=== PATIENT | male | born 1985 | race Caucasian/White ===

== ENCOUNTER 2019-04-25 19:59 | Emergency (ER) | payer SELFPAY ==
[2019-04-25] VITALS (13 sets, daily range): BP systolic 94–147; BP diastolic 53–106; PULSE 91–122; RESP 22–28; TEMP 36.6; O2SAT 97–99; BMI 23.0
--- NOTE | 2019-04-25 | XR_ITS ---
WS: [id number] Portable AP supine chest, Clinical Data: POST TUBE Comparison: None. Findings: The endotracheal tube is above the denzel. The nasogastric tube appears to end in the stoma ch. No nodules, masses or effusions are seen. The heart is normal. The pulmonary vascularity is not i ncreased. No pneumonia or pneumothorax is seen. XR/XR chest 1V [id number] Impression: 1. Satisfactory insertion of endotracheal tube and nasogastric tube. 2. Negative for acute cardiopulmonary disease.
--- NOTE | 2019-04-25 20:03 | XR_ITS ---
WS: [id number] Portable AP upright chest, 04/25/2019, 2213 hours Clinical Data: ams Comparison: Portable chest, 11/28/2017. Findings: No nodules, masses or effusions are seen. The heart is normal. The pulmonary vascularity is not increased. No pneumonia or pneumothorax is seen. XR/XR chest 1V portable [id number] Impression: Negative chest.
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
--- NOTE | 2019-04-25 20:05 | ECG_ITS ---
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 [email or web address]
[2019-04-25] MEDS: LORazepam 2 mg/mL INJ 1 mL IVP ×2 (20:21→23:02)
[2019-04-25] MEDS: sodium chloride 0.9% 1,000 ML 999 ML IV ×2 (20:21→23:36)
[2019-04-25 20:29] LABS: Basophils % 0.3 %; Eosinophils % 0.3 %; Hematocrit 40.3 % (42.0-52.0); Hemoglobin 13.4 g/dL (11.7-16.6); Lymphocytes # 2.2 10^3/uL (0.8-4.8); Lymphocytes % 37.9 %; Mean Corpuscular HGB Conc 33.3 g/dL (30.0-36.0); Mean Corpuscular Hemoglobin 29.3 pg (28.0-34.0); Monocytes # 0.7 10^3/uL (0.2-0.9); Monocytes % 11.3 %; Neutrophils # 2.9 10^3/uL (1.8-7.7); Nucleated Red Blood Cells % 0 %; Platelet Count 240 10^3/cmm (130-400); Red Blood Count 4.58 10^6/uL (4.1-5.3); Red Cell Distribution Width 13.2 % (12.1-15.1); White Blood Count 5.7 10^3/uL (4.0-10.0)
[2019-04-25] MEDS: haloperidol inj 5 mg/mL INJ 1 mL IVP (20:30)
[2019-04-25 20:51] LABS: Alanine Aminotransferase 26 U/L (0-41); Albumin Level 4.7 g/dL (3.5-5.2); Alkaline Phosphatase 71 IU/L (40-130); Anion Gap 16.5 (5-19); Aspartate Amino Transferase 36 U/L (0-40); Blood Urea Nitrogen 23 mg/dL (6-20); Calcium 10.4 mg/dL (8.5-10.5); Carbon Dioxide 24 mmol/L (22-29); Chloride 107 mmol/L (98-107); Globulin 3.1 g/dL (1.3-4.6); Glomerular Filtration Rate 53.6 mL/min (90-130); Glucose 93 mg/dL (65-115); Potassium 3.5 mmol/L (3.5-5.1); Sodium 144 mmol/L (136-145); Total Bilirubin 0.4 mg/dL (0.15-1.2); Total Protein 7.8 g/dL (6.6-8.7)
[2019-04-25 20:52] LABS: Ammonia 47 umol/L (16-60)
[2019-04-25 21:07] LABS: Acetaminophen < 5.0 ug/mL (10-30); Alcohol Level < 10 mg/dL (0-10); Salicylate < 0.3 mg/dL (3-10)
[2019-04-25] MEDS: succinylcholine 20 mg/mL SDV 10mL 100 MG IV (21:20)
--- NOTE | 2019-04-25 21:43 | CTR_ITS ---
PROCEDURE INFORMATION: Exam: CT Head Without Contrast Exam date and time: 04/25/2019 10:04 PM Age: 33 years old Clinical indication: Altered mental status/memory loss; Confusion or disorientation; Patient HX: PT came in ams/combative, no other HX available TECHNIQUE: Imaging protocol: Computed tomography of the head without contrast. Total DLP: 782.1 mGy-cm Radiation optimization: All CT scans at this facility use at least one of these dose optimization techniques: automated exposure control; mA and/or kV adjustment per patient size (includes targeted exams where dose is matched to clinical indication); or iterative reconstruction. COMPARISON: CT head wo con* [id number] 11/28/2017 10:40 AM FINDINGS: Brain: Normal. No hemorrhage. Unremarkable white matter. No mass effect. Ventricles: Normal. No ventriculomegaly. Bones/joints: Unremarkable. No acute fracture. Sinuses: Mild mucosal thickening in the ethmoid and left maxillary sinuses. Mastoid air cells: Visualized mastoid air cells are well aerated. Soft tissues: Unremarkable. CT/CT head wo con* [id number] IMPRESSION: No acute intracranial abnormality. Radiation Dose CTDIVOL = (mGy): DLP = 782.1 (mGy-cm)
[2019-04-25] MEDS: vecuronium 10 mg SDV IVP (21:47)
[2019-04-25] MEDS: propofol 1,000 MG/100 ML INJ 2.2 MG IV (22:15)
[2019-04-26] VITALS (39 sets, daily range): BP systolic 102–138; BP diastolic 69–100; PULSE 50–108; RESP 14–31; O2SAT 74–100
[2019-04-26 01:54] LABS: Barbiturates Screen Urine Negative (Negative); Benzodiazepines Screen Urine Positive (Negative); Cocaine Screen Urine Negative (Negative); Opiate Screen Urine Negative (Negative); PCP Screen Urine Negative (Negative); THC Screen Urine Negative (Negative)
[2019-04-26] MEDS: propofol 10 mg/mL SDV 20 mL 40 MG IVP (01:59)
[2019-04-26 02:06] LABS: Amphetamines Screen Urine Positive (Negative)
--- NOTE | 2019-04-26 02:11 | PC.NURSE ---
pt began to wake up, and fight the tube. Dr ordered propofol increased 15, and moved pt to trauma room 10
[2019-04-26 05:13] LABS: ABG PCO2 36.2 mmHg (35-45); ABG PH Result 7.36 (7.35-7.45); Base Excess ABG -4.6 mmol/L (-2.0-2.0); Blood Gas Allen Test Pos; Blood Gas Sample Site Radial, right; Blood Gas Sample Type Arterial; Blood Gas Tidal Volume 0.55; HCO3 ABG 20.3 mmol/L (22-26); Oxygen Device VENT
[2019-04-26] MEDS: sodium chloride 0.9% 1,000 ML 150 ML IV (05:23)
[2019-04-26] MEDS: vecuronium 10 mg SDV IV ×3 (06:20→09:15)
[2019-04-26] MEDS: midazolam 1 mg/mL INJ 2 mL 4 MG IVP (07:37)
--- NOTE | 2019-04-26 08:50 | PC.NURSE ---
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 Dispatch called and stated that the [facility] compounding and finishing supervisor okayed the call.
== END 2019-04-26 09:36 | disposition other institution (70) ==
PROVIDERS: Emergency Provider Emergency Medicine
DX: R41.82 Altered mental status, unspecified (principal); F15.10 Other stimulant abuse, uncomplicated
CPT/HCPCS: 31500; 36415; 51702; 70450; 71045; 80053; 80307; 82140; 82803; 85025; 93005; 94002; 94003; 94799; 96360; 96365; 96366; 96372; 96375; 99284; 99291; J0330; J1630; J2060; J2250; J2704; J3490; J7030

== ENCOUNTER → 2019-11-25 11:33 | Outpatient (BNVA) | payer OTHER, SELFPAY | PROVIDERS: Visit Provider Nurse Practitioner Family | DX: J06.9 Acute upper respiratory infection, unspecified (principal); Z20.828 Contact with and (suspected) exposure to other viral communicable diseases | CPT/HCPCS: 87635 ==

== ENCOUNTER 2020-09-21 05:39 | Emergency (ER) | payer SELFPAY ==
[2020-09-21 05:48] VITALS: BP 111/77; PULSE 86; RESP 14; TEMP 36.7; O2SAT 94; BMI 27.1
--- NOTE | 2020-09-21 06:04 | W.ED.NAVMDI ---
HPI - Nausea/Vomiting/Diarrhea General: Chief complaint: Nausea/Vomiting/Diarrhea Stated complaint: Overheated at work, Vomited Stomach Ache Time Seen by Provider: 09/21/20 06:03 History of Present Illness: HPI Narrative: 35-year-old male presents emergency room complaining of nausea. 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 He got progressively worse he several times tried to go to an air conditioned space to get some relief as he went in and out of that space he began to have more trouble his trying to drink Gatorade and water but began vomiting was unable to keep anything down he did end up finishing his shift went home was able to shower and then laid down but is still been nauseous through the night he drank evidently of sponges a gallon of milk he is not having as much nausea this morning but still feels lightheaded dizzy and weak. He denies any hematochezia melena hematemesis or coffee-ground emesis patient is not diabetic to the best of his knowledge. He is on Wellbutrin and sertraline. MD elicited complaint: nausea and vomiting Onset (ago): hour(s) Description of vomiting: watery Associated nausea: Yes Associated abdominal pain: Yes Location of pain: Diffuse Radiation: diffuse Severity: moderate Quality: cramping Exacerbating factors: eating Relieving factors: rest Context: history of abdominal surgery Associated symtoms: Reports dizziness, anorexia, malaise, nausea and weakness; Denies altered mental status, anxiety, bloating, change in vision, chest pain, cough, diaphoresis, decreased urine output, dysuria, epistaxis, fatigue, fecal incontinence, fevers/chills, headache(s), myalgias, numbness, palpitations, rash, short of breath, syncope, tenesmus or tinnitus Treatment prior to arrival: fluids Review of Systems Const: Reports: malaise; Denies: fatigue or diaphoresis Eyes: Denies: change in vision ENMT: Denies: tinnitus or epistaxis Card: Denies: chest pain, palpitations or syncope Resp: Denies: dyspnea, productive cough or non-productive cough GI: Reports: nausea; Denies: bloating or fecal incontinence : Denies: dysuria Skin/Breast: Denies: rash or pruritus Neuro: Reports: dizziness; Denies: headache(s) Psych: Denies: anxiety PFSH ED PFSH: Medical History (Updated 09/21/20 @ 07:16 by Joey Navarro DO) Recent surgical procedure on lower extremity Surgical History History of appendectomy Social History Smoking and tobacco status: unknown if ever smoked Quit status (tobacco): not considering quitting Second hand smoke exposure: No Smoking risk assessment/counseling performed?: Yes Tobacco counseling given: counseling >3 minutes Physical Exam Const: COMMON NORMALS: no acute distress EXAM LIMITATIONS: no altered mental status GENERAL APPEARANCE: cooperative and comfortable ORIENTATION/CONSCIOUSNESS: Yes awake, Yes oriented to person, Yes oriented to place and Yes oriented to time HENMT: COMMON NORMALS: normocephalic, atraumatic, hearing grossly normal bilaterally and external ears normal HEAD & SCALP: normocephalic and atraumatic EXTERNAL EAR: Yes external ears normal Neck/C-Spine: COMMON NORMALS: no JVD Lymph: LYMPHATIC: no lymphadenopathy noted and no lymphedema noted Resp: COMMON NORMALS: normal respiratory effort, No retractions, No use of accessory muscles and clear to auscultation bilaterally AUSCULTATION: clear to auscultation bilaterally Cardio: COMMON NORMALS: no JVD, regular rate, regular rhythm and No murmurs present (Cardio) RATE: regular rate RHYTHM: regular rhythm GI: COMMON NORMALS: Soft to palpation and No hepatosplenomegaly present AUSCULTATION: Yes normoactive bowel sounds PALPATION: Yes Soft to palpation, No Tenderness to palpation present (GI), No Guarding due to palpation present (GI) and Yes No hepatosplenomegaly present Extremity: COMMON NORMALS: normal to inspection, capillary refill normal, no clubbing, cyanosis or edema, no calf tenderness and no pedal edema Neuro: SENSORIUM/ORIENTATION: Yes oriented to person, Yes oriented to place and Yes oriented to time Skin: COMMON NORMALS: no rashes or lesions noted GENERAL SKIN EXAM: no rashes or lesions noted Course Vital Signs: Vital signs: Vital Signs Temperature 98.1 F 09/21/20 05:48 Pulse Rate 76 07/09/21 08:38 Respiratory Rate 15 09/21/20 08:38 Blood Pressure 109/60 09/21/20 08:38 Pulse Oximetry 99 09/21/20 08:38 MDM - Nausea/Vomiting/Diarrhea MDM Narrative: Medical decision making narrative: IV fluids we will have the patient take the next day off of work. Give him antiemetics push oral fluids at home return if has problems. Should follow-up for repeat labs with his primary care doctor next week. Avoid excessive exposure to heat. Lab Data: Labs: Lab Results 09/21/20 09/21/20 Range/Units 06:20 06:20 WBC 7.4 (4.0-10.0) 10^3/ uL RBC 5.11 (4.1-5.3) 10^6/u L Hgb 15.1 (11.7-16.6) g/dL Hct 44.4 (42.0-52.0) % MCV 86.9 (80-94) fL MCH 29.5 (28.0-34.0) pg MCHC 34.0 (30.0-36.0) g/dL RDW 12.5 (12.1-15.1) % Plt Count 295 (130-400) 10^3/c mm MPV 9.8 (7.4-10.4) fL Neut % (Auto) 60.8 % Lymph % (Auto) 27.7 % Schuyler % (Auto) 9.7 % Eos % (Auto) 1.1 % Baso % (Auto) 0.4 % Neut # (Auto) 4.52 (1.8-7.7) 10^3/u L Lymph # (Auto) 2.1 (0.8-4.8) 10^3/u L Schuyler # (Auto) 0.7 (0.2-0.9) 10^3/u L Eos # (Auto) 0.1 (0.0-0.8) 10^3/u L Baso # (Auto) 0.0 (0.0-0.1) 10^3/u L Nucleated RBC % (a uto) 0 % Nucleated RBCs # 0.0 /100WBC Sodium 137 (136-145) mmol/L Potassium 3.8 (3.5-5.1) mmol/L Chloride 96 L (98-107) mmol/L Carbon Dioxide 28 (22-29) mmol/L Anion Gap 16.8 (5-19) BUN 46 H (6-20) mg/dL Creatinine 1.5 H (0.7-1.2) mg/dL GFR Calculation 53.0 L (90-130) mL/min Glucose 112 (65-115) mg/dL Calculated Osmolal ity 297 H (285-295) mOsm/k g Calcium 9.6 (8.5-10.5) mg/dL Discharge Plan Discharge Patient Disposition: Home Clinical Impression: Heat exhaustion, Dehydration Condition: Stable Prescriptions: New Zofran 4 mg tablet 4 mg PO Q6H PRN (Reason: nausea and vomiting) Qty: 20 RF: 0 No Action ibuprofen 100 mg tablet 500 mg PO BID PRN (Reason: fever or pain) RF: 0 bupropion HCl 300 mg tablet extended release 24 hr 300 mg PO QAM Qty: 30 RF: 2 sertraline 100 mg tablet 200 mg PO QDAY Qty: 60 RF: 2 Discharge Orders: Discharge ED (Routine); Ordered 09/21/20 Ordered By: Joey Navarro Discharge Diet: Usual diet Discharge Activity: Resume usual activity Patient Instructions: Opioid Safety Activity Restrictions/Additional Instructions: Return to work 09/22/20. 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
[2020-09-21] MEDS: ondansetron 2 mg/ML SDV 2 mL 4 MG IVP (06:23)
[2020-09-21] MEDS: sodium chloride 0.9% 1,000 ML 999 ML IV ×3 (06:24→07:13)
[2020-09-21 06:30] LABS: Basophils % 0.4 %; Eosinophils # 0.1 10^3/uL (0.0-0.8); Eosinophils % 1.1 %; Hematocrit 44.4 % (42.0-52.0); Hemoglobin 15.1 g/dL (11.7-16.6); Lymphocytes # 2.1 10^3/uL (0.8-4.8); Lymphocytes % 27.7 %; Mean Corpuscular Hemoglobin 29.5 pg (28.0-34.0); Mean Corpuscular Volume 86.9 fL (80-94); Mean Platelet Volume 9.8 fL (7.4-10.4); Monocytes # 0.7 10^3/uL (0.2-0.9); Monocytes % 9.7 %; Neutrophils # 4.52 10^3/uL (1.8-7.7); Neutrophils % 60.8 %; Nucleated Red Blood Cells % 0 %; Platelet Count 295 10^3/cmm (130-400); Red Blood Count 5.11 10^6/uL (4.1-5.3); Red Cell Distribution Width 12.5 % (12.1-15.1); White Blood Count 7.4 10^3/uL (4.0-10.0)
[2020-09-21 06:51] LABS: Anion Gap 16.8 (5-19); Blood Urea Nitrogen 46 mg/dL (6-20); Calcium 9.6 mg/dL (8.5-10.5); Carbon Dioxide 28 mmol/L (22-29); Chloride 96 mmol/L (98-107); Glucose 112 mg/dL (65-115); Osmolality Calculated 297 mOsm/kg (285-295); Potassium 3.8 mmol/L (3.5-5.1); Sodium 137 mmol/L (136-145)
[2020-09-21 08:38] VITALS: BP 109/60; PULSE 76; RESP 15; O2SAT 99
== END 2020-09-21 08:40 | disposition home or self-care (01) ==
PROVIDERS: Emergency Provider Family Medicine
DX: T67.5XXA Heat exhaustion, unspecified, initial encounter (principal); X30.XXXA Exposure to excessive natural heat, initial encounter
CPT/HCPCS: 80048; 85025; 96361; 96374; 99284; J2405; J7030

== ENCOUNTER 2021-07-08 23:38 | Emergency (ER) | payer SELFPAY ==
[2021-07-08 23:39] VITALS: BP 116/85; PULSE 85; RESP 17; TEMP 37.3; O2SAT 93; BMI 23.1
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
== END 2021-07-09 00:37 | disposition home or self-care (01) ==
PROVIDERS: Emergency Provider Emergency Medicine; PCP Family Medicine
DX: F10.129 Alcohol abuse with intoxication, unspecified (principal); F17.290 Nicotine dependence, other tobacco product, uncomplicated
CPT/HCPCS: 99282

== ENCOUNTER 2022-02-08 12:06 | Emergency (ER) | payer SELFPAY ==
[2022-02-08 12:13] VITALS: BP 114/62; PULSE 89; RESP 16; TEMP 36.7; O2SAT 95
--- NOTE | 2022-02-08 12:19 | W.ED.DENTAL ---
HPI - Dental/Oral General: Chief complaint: Dental/Oral Stated complaint: facial swelling/dental pain Time Seen by Provider: 02/08/22 12:20 History of Present Illness: Patient is a 36-year-old male who comes to the ED with dental pain. Dental pain started several days ago. He has poor dentition and is supposed to get his teeth pulled. Dental pain starts in the right upper incisor teeth. Yesterday he started developing some right facial swelling and this morning he woke up and it got a little worse. Patient takes CBD products for pain. Denies any other symptoms. Patient has a dentist set up for follow-up. Associated symptoms: Denies fever(s) or odynophagia Review of Systems Const: Denies: fever(s), chills or fatigue Eyes: Denies: change in vision or eye discomfort ENMT: Reports: dental pain; Denies: throat pain, odynophagia, nasal discharge or nasal congestion Card: Denies: chest pain, palpitations, edema, swelling of feet/ankles, dyspnea on exertion or orthopnea Resp: Denies: dyspnea, productive cough or non-productive cough GI: Denies: abdominal pain, nausea, vomiting, diarrhea, constipation or hematochezia : Denies: flank pain, difficulty urinating, dysuria or hematuria Musc: Denies: neck pain, back pain or extremity swelling Skin/Breast: Denies: rash or new lesions Neuro: Denies: headache(s), numbness in extremities or weakness in extremities PFS ED PFSH: Medical History Recent surgical procedure on lower extremity Surgical History History of appendectomy Social History Smoking and tobacco status: current every day smoker e-cigarettes E-Cigarette Details: vaporizer device and with nicotine E-cig/vape details: 0.6 mg - 2/day Quit status (tobacco): has tried quititng Number of times tried to quit tobacco: 2 Second hand smoke exposure: Yes Smoking risk assessment/counseling performed?: No Alcohol intake: current Alcohol intake frequency: few times a month Alcohol type: hard liquor Desire information about alcohol rehabilitation?: No Counseling given: No Desire information about substance/drug rehabilitation?: No Counseling given: No Physical Exam Const: COMMON NORMALS: no acute distress, patient oriented x3 and alert GENERAL APPEARANCE: cooperative and comfortable HENMT: COMMON NORMALS: normocephalic HEAD & SCALP: normocephalic FACE & SINUS: edema on the right maxilla MOUTH: Normal oral and palatal mucosa present TEETH & GINGIVA: Yes abnormal tooth and associated gingiva upper right lateral incisor tender, with associated gingival edema and other (Extensive dental decay), Yes caries and Yes poor dentition THROAT: posterior oropharynx normal and uvula midline Neck/C-Spine: COMMON NORMALS: supple GENERAL: Yes normal visual inspection Resp: COMMON NORMALS: normal respiratory effort, No retractions, No use of accessory muscles and clear to auscultation bilaterally AUSCULTATION: clear to auscultation bilaterally Cardio: COMMON NORMALS: regular rate, regular rhythm, S1 normal heart sound present, S2 normal heart sound present, No gallops present (Cardio), No clicks present (Cardio), No murmurs present (Cardio) and Peripheral pulses 2+ throughout RATE: regular rate RHYTHM: regular rhythm HEART SOUNDS: S1 normal heart sound present and S2 normal heart sound present PERIPHERAL PULSES: Peripheral pulses 2+ throughout GI: COMMON NORMALS: Normal to inspection, nondistended, normoactive bowel sounds present, Soft to palpation, non-tender and no masses PALPATION: Yes Soft to palpation : COMMON NORMALS: Yes no CVA tenderness BLADDER/KIDNEY EXAM: Yes no CVA tenderness Back/Pelvis: COMMON NORMALS: no CVA tenderness Extremity: COMMON NORMALS: normal to inspection Neuro: COMMON NORMALS: patient oriented x3 SENSORIUM/ORIENTATION: Yes alert GAIT: Yes Normal gait present Skin: GENERAL SKIN EXAM: dry skin Course Vital Signs: Vital signs: Vital Signs Temperature 98.1 F 02/08/22 12:23 Pulse Rate 89 02/08/22 12:23 Respiratory Rate 16 02/08/22 12:23 Blood Pressure 114/62 02/08/22 12:23 Pulse Oximetry 95 02/08/22 12:23 Oxygen Delivery Me thod 02/08/22 12:23 [facility] - Dental/Oral Medical Decision Making Patient is a 36-year-old male who comes to the ED with dental pain. Dental pain started several days ago. He has poor dentition and is supposed to get his teeth pulled. Dental pain starts in the right upper incisor teeth. Vitals are stable. Patient appears nontoxic and in no acute distress or pain. Patient has extensive dental decay around right upper lateral incisors with some gingival edema as well. Poor dentition throughout. He was diagnosed with pain due to dental caries and was discharged home on a prescription for clindamycin. Told to follow-up with his dentist at his scheduled appointment for further management of dental pain. Patient understood and agreed with plan. Discharge Plan Discharge Patient Disposition: Home Clinical Impression: Pain due to dental caries Condition: Stable Prescriptions: New clindamycin HCl 150 mg capsule 300 mg PO Q6H 7 Days Qty: 56 0RF No Action ibuprofen 100 mg tablet 500 mg PO BID PRN (Reason: fever or pain) bupropion HCl 300 mg tablet extended release 24 hr 300 mg PO QAM Qty: 30 2RF sertraline 100 mg tablet 100 mg PO QDAY Qty: 30 2RF Discharge Orders: Discharge ED (Routine); Ordered 02/08/22 Ordered By: Hans Dowling Referrals: César Jeff MD [Primary Care Provider] - Discharge Diet: Regular Discharge Activity: Resume usual activity Patient Instructions: Dental Caries (Cavities) Activity Restrictions/Additional Instructions: Follow-up with dentist for further evaluation and management of dental pain. Take medications as prescribed. Return to the ER or your medical provider if condition worsens. Please read and understand discharge instructions. Thank you for choosing [facility] for your healthcare needs today. Please realize this is an emergency room and that we are providing you with a medical screening exam and this may not be complete and all inclusive of all the testing and or work up that you may need to determine your ailment or severity of your illness. It is very important that you follow up as instructed or that you return to the Emergency Department should you have concerns or if your condition changes or worsens in any way. Coding Level of Care Code ED Hot Car Operator for Anna Marie Pascal Exam Comprehensive
[2022-02-08 12:23] VITALS: BP 114/62; PULSE 89; RESP 16; TEMP 36.7; O2SAT 95
[2022-02-08] MEDS: clindamycin 150 mg Capsule 300 MG PO (12:38)
[2022-02-08 12:39] VITALS: BP 131/78; PULSE 87; RESP 16; O2SAT 99
== END 2022-02-08 12:39 | disposition home or self-care (01) ==
PROVIDERS: Emergency Provider Physician Assistant; PCP Family Medicine
DX: K08.89 Other specified disorders of teeth and supporting structures (principal)
CPT/HCPCS: 99283

== ENCOUNTER 2022-07-07 09:29 | Emergency (ER) | payer SELFPAY ==
[2022-07-07 09:42] VITALS: PULSE 63; RESP 26; TEMP 36.4; O2SAT 100; BMI 24.3
--- NOTE | 2022-07-07 10:18 | PC.NURSE ---
Whilst waiting to be traiged and waiting for a room pt continually crawls into floor from wheelchair. Pt was able to ambulate freely to restroom. Pt is also screaming and yelling and convulsing whilst moaning.
--- NOTE | 2022-07-07 10:44 | PC.NURSE ---
Pt was placed in a room. Immediately upon entering room pt calmed. Pt no longer vibrating/convulsing himself, screaming, or moaning. Pt states I just had to get back here .
[2022-07-07 10:49] LABS: Basophils % 0.2 %; Eosinophils % 0.2 %; Hematocrit 35.9 % (42.0-52.0); Hemoglobin 11.9 g/dL (11.7-16.6); Lymphocytes % 11.6 %; Mean Corpuscular HGB Conc 33.1 g/dL (30.0-36.0); Mean Corpuscular Hemoglobin 29.6 pg (28.0-34.0); Mean Corpuscular Volume 89.3 fl (80-94); Mean Platelet Volume 9.6 fL (7.4-10.4); Monocytes # 0.4 10^3/uL (0.2-0.9); Monocytes % 4.1 %; Neutrophils # 7.26 10^3/uL (1.8-7.7); Neutrophils % 83.6 %; Nucleated Red Blood Cells % 0 %; Platelet Count 268 10^3/cmm (130-400); Red Blood Count 4.02 10^6/uL (4.1-5.3); Red Cell Distribution Width 12.7 % (12.1-15.1); White Blood Count 8.7 10^3/uL (4.0-10.0)
--- NOTE | 2022-07-07 10:50 | CT_ITS ---
WS: [id number] CT ABDOMEN PELVIS TECHNIQUE: Contrast-enhanced CT of the abdomen and pelvis with coronal and sagittal reformatted image s. CLINICAL INFORMATION: abdominal pain, n/v COMPARISON: None. DLP: 856.[address] scans at [facility] use at least one of these dose optimization techniques: automated e xposure control; mA and/or kV adjustment per patient size (includes targeted exams where dose is matc hed to clinical indication); or iterative reconstruction. FINDINGS: Lung bases are well aerated. Hepatomegaly. Diffuse fatty infiltration liver. Normal portal vein and s plenic vein. Normal spleen. Normal GE junction. Adrenal glands are normal. Normal renal parenchymal e nhancement. No hydronephrosis. Celiac and SMA are patent. Normal gallbladder. Normal sigmoid colon. Surgical clips at the cecum presumably due to prior appendectomy. No free fluid in the abdomen or pelvis. Normal caliber abdominal aorta. No hydronephrosis in either kidney. No oth er suspicious findings. CT/CT abdomen pelvis w con* [id number] IMPRESSION: 1. Hepatomegaly with diffuse fatty infiltration liver. 2. Prior appendectomy. 3. No hydronephrosis in either kidney. 4. No free fluid in the abdomen or pelvis. 5. Normal sigmoid colon. 6. No acute abdominal or pelvic findings.
--- NOTE | 2022-07-07 10:52 | ED_ITS ---
HPI - Abdominal Pain General: Chief Complaint: Nausea/Vomiting/Diarrhea Stated Complaint: Abd pain, N/V Time Seen by Provider: 07/07/22 09:56 History of Present Illness: Patient is a 37-year-old male who comes to the ED with abdominal pain, nausea and vomiting. Symptoms started this morning when he woke up. Abdominal pain is generalized throughout the abdomen and he describes it as a burning pain. He rates the pain currently an 8 out of 10. He has also been having nausea and multiple episodes of emesis this morning since onset of symptoms. He has been having increased belching as well. Patient took a hot shower this morning and it did help his symptoms temporarily. Denies any fevers, diarrhea, constipation, dysuria, hematuria. Patient does admit that he uses marijuana daily. Associated Symptoms: Reports nausea and vomiting; Denies chills, constipation, diarrhea, dysuria, fever(s), hematochezia and hematuria Review of Systems Const: Denies: fever(s), chills or fatigue Eyes: Denies: change in vision or eye discomfort ENMT: Denies: throat pain, odynophagia, nasal discharge or nasal congestion Card: Denies: chest pain, palpitations, edema, swelling of feet/ankles, dyspnea on exertion or orthopnea Resp: Denies: dyspnea, productive cough or non-productive cough GI: Reports: abdominal pain, nausea and vomiting; Denies: diarrhea, constipation or hematochezia : Denies: flank pain, difficulty urinating, dysuria or hematuria Musc: Denies: neck pain, back pain or extremity swelling Skin/Breast: Denies: rash or new lesions Neuro: Denies: headache(s), numbness in extremities or weakness in extremities PFS ED PFSH: Medical History (Updated 07/07/22 @ 13:24 by JASS Salamanca) Recent surgical procedure on lower extremity Surgical History History of appendectomy Social History Smoking and tobacco status: current every day smoker e-cigarettes E-Cigarette Details: vaporizer device and with nicotine E-cig/vape details: 0.6 mg - 2/day Quit status (tobacco): has tried quititng Number of times tried to quit tobacco: 2 Second hand smoke exposure: Yes Smoking risk assessment/counseling performed?: No Alcohol intake: current Alcohol intake frequency: few times a month Alcohol type: hard liquor Desire information about alcohol rehabilitation?: No Counseling given: No Substance/Drug Use: former Date of last use: 2019 Desire information about substance/drug rehabilitation?: No Counseling given: No Physical Exam Const: COMMON NORMALS: patient oriented x3 and alert GENERAL APPEARANCE: cooperative and comfortable OTHER: Patient is moaning in pain HENMT: COMMON NORMALS: normocephalic HEAD & SCALP: normocephalic MOUTH: Normal oral and palatal mucosa present THROAT: posterior oropharynx normal and uvula midline Neck/C-Spine: COMMON NORMALS: supple GENERAL: Yes normal visual inspection Resp: COMMON NORMALS: normal respiratory effort, No retractions, No use of accessory muscles and clear to auscultation bilaterally AUSCULTATION: clear to auscultation bilaterally Cardio: COMMON NORMALS: regular rate, regular rhythm, S1 normal heart sound present, S2 normal heart sound present, No gallops present (Cardio), No clicks present (Cardio), No murmurs present (Cardio) and Peripheral pulses 2+ throughou t RATE: regular rate RHYTHM: regular rhythm HEART SOUNDS: S1 normal heart sound present and S2 normal heart sound present PERIPHERAL PULSES: Peripheral pulses 2+ throughout GI: COMMON NORMALS: Normal to inspection, nondistended, normoactive bowel sounds present, Soft to palpation and no masses PALPATION: Yes Soft to palpation and Yes Tenderness to palpation present (GI) Details: other (Mild generalized tenderness throughout abdomen) : COMMON NORMALS: Yes no CVA tenderness BLADDER/KIDNEY EXAM: Yes no CVA tenderness Back/Pelvis: COMMON NORMALS: no CVA tenderness Extremity: COMMON NORMALS: normal to inspection Neuro: COMMON NORMALS: patient oriented x3 SENSORIUM/ORIENTATION: Yes alert GAIT: Yes Normal gait present Skin: GENERAL SKIN EXAM: dry skin Course Vital Signs: Vital signs: Vital Signs Temperature 97.5 F L 07/07/22 09:42 Pulse Rate 63 07/07/22 09:42 Respiratory Rate 26 H 07/07/22 09:42 Pulse Oximetry 100 07/07/22 09:42 Oxygen Delivery Me thod Room Air 07/07/22 09:42 MDM - Abdominal Pain Medical Decision Making Patient is a 37-year-old male who comes to the ED with abdominal pain, nausea and vomiting. Symptoms started this morning when he woke up. Abdominal pain is generalized throughout the abdomen and he describes it as a burning pain. He rates the pain currently an 8 out of 10. He has also been having nausea and multiple episodes of emesis this morning since onset of symptoms. He has been having increased belching as well. Patient took a hot shower this morning and it did help his symptoms temporarily. Denies any fevers, diarrhea, constipation, dysuria, hematuria. Patient does admit that he uses marijuana daily. Vitals are stable. Patient is a 37-year-old male moaning in pain on the exam bed. He has some generalized tenderness to the abdomen. Rest of exam is benign. Labs are all unremarkable. CT of abdomen pelvis shows no acute findings. Patient was given 1 L of IV fluids, pain and nausea meds and his symptoms improved greatly. He was able to tolerate p.o. fluids. He was stable for discharge home and diagnosed with abdominal pain, nausea and vomiting. Patient's acute nausea and vomiting likely due to hyperemesis cannabinoid syndrome. Sent home with a prescription for Pepcid and Zofran. Told to follow- up with his PCP in the next week for reevaluation. Return to ED precautions given. Patient understood and agreed with plan. Lab Data I reviewed the patient's lab results. 07/07/22 10:30 07/07/22 10:30 Labs/Radiology: Radiology Impressions Abdomen/Pelvis CT 07/07/22 10:50 IMPRESSION: 1. Hepatomegaly with diffuse fatty infiltration liver. 2. Prior appendectomy. 3. No hydronephrosis in either kidney. 4. No free fluid in the abdomen or pelvis. 5. Normal sigmoid colon. 6. No acute abdominal or pelvic findings. Laboratory Results WBC 8.7 10^3/uL (4.0-10.0) 07/07/22 10:30 RBC 4.02 10^6/uL (4.1-5.3) L 07/07/22 10:30 Hgb 11.9 g/dL (11.7-16.6) 07/07/22 10:30 Hct 35.9 % (42.0-52.0) L 07/07/22 10:30 MCV 89.3 fl (80-94) 07/07/22 10:30 MCH 29.6 pg (28.0-34.0) 07/07/22 10:30 MCHC 33.1 g/dL (30.0-36.0) 07/07/22 10:30 RDW 12.7 % (12.1-15.1) 07/07/22 10:30 Plt Count 268 10^3/cmm (130-400) 07/07/22 10:30 MPV 9.6 fL (7.4-10.4) 07/07/22 10:30 Neut % (Auto) 83.6 % 07/07/22 10:30 Lymph % (Auto) 11.6 % 07/07/22 10:30 Antelope % (Auto) 4.1 % 07/07/22 10:30 Eos % (Auto) 0.2 % 07/07/22 10:30 Baso % (Auto) 0.2 % 07/07/22 10:30 Neut # (Auto) 7.26 10^3/uL (1.8-7.7) 07/07/22 10:30 Lymph # (Auto) 1.0 10^3/uL (0.8-4.8) 07/07/22 10:30 Antelope # (Auto) 0.4 10^3/uL (0.2-0.9) 07/07/22 10:30 Eos # (Auto) 0.0 10^3/uL (0.0-0.8) 07/07/22 10:30 Baso # (Auto) 0.0 10^3/uL (0.0-0.1) 07/07/22 10:30 Nucleated RBC % (auto) 0 % 07/07/22 10:30 Nucleated RBCs # 0.0 /100WBC 07/07/22 10:30 Sodium 140 mmol/L (136-145) 07/07/22 10:30 Potassium 4.0 mmol/L (3.5-5.1) 07/07/22 10:30 Chloride 105 mmol/L (98-107) 07/07/22 10:30 Carbon Dioxide 24 mmol/L (22-29) 07/07/22 10:30 Anion Gap 15.0 (5-19) 07/07/22 10:30 BUN 16 mg/dL (6-20) 07/07/22 10:30 Creatinine 0.9 mg/dL (0.7-1.2) 07/07/22 10:30 GFR Calculation 94.4 mL/min (90-130) 07/07/22 10:30 Glucose 162 mg/dL (65-115) H 07/07/22 10:30 Calculated Osmolality 295 mOsm/kg (285-295) 07/07/22 10:30 Calcium 9.0 mg/dL (8.5-10.5) 07/07/22 10:30 Total Bilirubin 0.2 mg/dL (0.15-1.2) 07/07/22 10:30 AST 18 U/L (0-40) 07/07/22 10:30 ALT 17 U/L (0-41) 07/07/22 10:30 Alkaline Phosphatase 68 U/L (40-130) 07/07/22 10:30 Total Protein 6.2 g/dL (6.6-8.7) L 07/07/22 10:30 Albumin 4.1 g/dL (3.5-5.2) 07/07/22 10:30 Globulin 2.1 g/dL (1.3-4.6) 07/07/22 10:30 Lipase 24 U/L (13-60) 07/07/22 10:30 Discharge Plan Discharge Patient Disposition: Home Clinical Impression: Abdominal pain Qualifiers: Abdominal location: generalized Qualified Code(s): R10.84 - Generalized abdominal pain Nausea & vomiting Qualifiers: Vomiting type: unspecified Qualified Code(s): R11.2 - Nausea with vomiting, unspecified Condition: Stable Prescriptions: New Pepcid 20 mg tablet 20 mg PO BID 42 Days Qty: 84 0RF ondansetron 4 mg tablet,disintegrating 4 mg PO Q8H PRN (Reason: nausea and vomiting) Qty: 20 0RF No Action sertraline 100 mg tablet 100 mg PO QDAY Qty: 90 0RF bupropion HCl 300 mg tablet extended release 24 hr 300 mg PO QAM Qty: 90 0RF ibuprofen 200 mg Capsule 400 mg PO Q6H PRN (Reason: Pain) Discharge Orders: Discharge ED (Routine); Ordered 07/07/22 Ordered By: Hans Dowling Referrals: César Jeff MD [Primary Care Provider] - Discharge Diet: Advance as tolerated and Clear Liquid Discharge Activity: Increase activity as tolerated Patient Instructions: Acute Nausea and Vomiting (DC), Abdominal Pain (ED) Activity Restrictions/Additional Instructions: Follow-up with medical provider as directed in the next 5 to 7 days for reevaluation. Take medications as prescribed. Make sure you drink plenty of fluids and stay hydrated. Clear liquid diet for the next 24 to 48 hours, then slowly advance diet as tolerated return to the ER or your medical provider if condition worsens. Please read and understand discharge instructions. Thank you for choosing [facility] for your healthcare needs today. Please realize this is an emergency room and that we are providing you with a medical screening exam and this may not be complete and all inclusive of all the testing and or work up that you may need to determine your ailment or severity of your illness. It is very important that you follow up as instructed or that you return to the Emergency Department should you have concerns or if your condition changes or worsens in any way. Stand Alone Forms: Work/School Release Coding Level of Care Code ED Canvas Shrinker for Anna Marie Pascal
[2022-07-07 10:55] LABS: Alanine Aminotransferase 17 U/L (0-41); Albumin Level 4.1 g/dL (3.5-5.2); Alkaline Phosphatase 68 U/L (40-130); Aspartate Amino Transferase 18 U/L (0-40); Blood Urea Nitrogen 16 mg/dL (6-20); Carbon Dioxide 24 mmol/L (22-29); Chloride 105 mmol/L (98-107); Globulin 2.1 g/dL (1.3-4.6); Glomerular Filtration Rate 94.4 mL/min (90-130); Glucose 162 mg/dL (65-115); Lipase 24 U/L (13-60); Osmolality Calculated 295 mOsm/kg (285-295); Sodium 140 mmol/L (136-145); Total Bilirubin 0.2 mg/dL (0.15-1.2); Total Protein 6.2 g/dL (6.6-8.7)
[2022-07-07] MEDS: ondansetron 2 mg/ML SDV 2 mL 4 MG IVP (11:15)
[2022-07-07] MEDS: sodium chloride 0.9% 1,000 ML 999 ML IV (11:15)
[2022-07-07] MEDS: morphine 4 mg/mL SDV 1 mL IVP (11:15)
[2022-07-07] MEDS: haloperidol inj 5 mg/mL INJ 1 mL IVP (12:46)
[2022-07-07] MEDS: ketorolac 30 mg/mL INJ IVP (12:46)
== END 2022-07-07 13:47 | disposition home or self-care (01) ==
PROVIDERS: Emergency Provider Physician Assistant; PCP Family Medicine
DX: R10.84 Generalized abdominal pain (principal); R11.2 Nausea with vomiting, unspecified; F17.290 Nicotine dependence, other tobacco product, uncomplicated
CPT/HCPCS: 36415; 74177; 80053; 83690; 85025; 96361; 96374; 96375; 99285; J1630; J1885; J2270; J2405; J7030; Q9967

== ENCOUNTER 2023-11-15 01:19 | Emergency (ER) | payer SELFPAY ==
[2023-11-15 01:21] VITALS: BMI 21.5
[2023-11-15 01:52] VITALS: BP 105/62; PULSE 62; RESP 20; O2SAT 96
[2023-11-15 01:57] VITALS: BP 105/75; PULSE 63; RESP 17; O2SAT 91
[2023-11-15 02:27] VITALS: BP 99/63; PULSE 62; RESP 13; O2SAT 95
[2023-11-15] MEDS: sertraline 100 mg Tablet PO (02:48)
--- NOTE | 2023-11-15 05:59 | ED.C_ITS ---
HPI - Psych General: Chief Complaint: Psychiatric Symptoms Stated Complaint: Behavioral, Not taking meds Time Seen by Provider: 11/15/23 01:43 History of Present Illness: 38-year-old intoxicated male presenting with what he describes as agitation and depressive symptoms. He went off his Zoloft a couple of weeks ago. He says has been taking this for years. He said at first he did okay but has noticed increasing feelings of agitation, depression. He is not suicidal. He is not homicidal. He says he is turned to alcohol and mushrooms to cope with his feelings. He has been seen by [facility] in the past, but not recently. Associated symptoms: Deny delusions Related Data Previous Rx's Medication Instructions Recorded bupropion HCl 300 mg 24 hr tablet, 300 mg PO QAM #14 tabs 10/15/23 extended release sertraline 100 mg tablet 100 mg PO QDAY #30 tabs 11/15/23 Allergies Allergy/AdvReac Type Severity Reaction Status Date / Time No Known Allergies Allergy Verified 04/23/23 13:00 [facility] ED [facility]: Medical History (Updated 11/15/23 @ 02:08 by Narinder Hernandez DO) Psychiatric care Recent surgical procedure on lower extremity Surgical History History of appendectomy Social History Smoking and tobacco/nicotine status: current every day tobacco/nicotine user e- cigarettes E-Cigarette Details: vaporizer device and with nicotine E-cig/vape details: 0.6 mg - 2/day Quit status (tobacco/nicotine): has tried quititng Number of times tried to quit tobacco: 2 Second hand smoke exposure: Yes Alcohol intake: current Alcohol intake frequency: few times a month Alcohol type: hard liquor Substance/Drug Use: former Date of last use: 2019 Physical Exam Const: COMMON NORMALS: no acute distress GENERAL APPEARANCE: cooperative, lethargic and odor of alcohol detected; not ill appearing and not frail appearing ORIENTATION/CONSCIOUSNESS: Yes lethargic HENMT: COMMON NORMALS: normocephalic, atraumatic and Normal external nose present HEAD & SCALP: normocephalic and atraumatic FACE & SINUS: normal facial exam and face symmetric NOSE: Normal external nose present Eye: COMMON NORMALS: Equal, round and reactive pupils present and EOMs intact bilaterally PUPIL: Yes Equal, round and reactive pupils present Neck/C-Spine: GENERAL: Yes trachea midline Chest: CHEST: Yes Symmetrical chest wall rise Resp: COMMON NORMALS: normal respiratory effort, No retractions, No use of accessory muscles and clear to auscultation bilaterally AUSCULTATION: clear to auscultation bilaterally Cardio: COMMON NORMALS: regular rate and regular rhythm RATE: regular rate RHYTHM: regular rhythm GI: COMMON NORMALS: Normal to inspection, nondistended, normoactive bowel sounds present Extremity: COMMON NORMALS: no pedal edema Neuro: BLAS COMA SCALE: document GCS findings [place] coma scale eye opening: Spontaneous [place] coma scale verbal response: Orientated [place] coma scale motor response: Obey commands Blas coma scale total score: 15 SENSORIUM/ORIENTATION: Yes lethargic SENSORY EXAM: Yes extremities (intact) Psych: COMMON NORMALS: Normal thought process present ATTITUDE: Yes calm ACTIVITY/MOTOR BEHAVIOR: Yes psychomotor slowing SPEECH: Yes slurred MOOD & AFFECT: Yes depressed mood THOUGHT PROCESS: Normal thought process present and No disorganized THOUGHT CONTENT: No Suicidality present, No Homicidality present, No delusions and No Hallucination(s) present Skin: COMMON NORMALS: no rashes or lesions noted GENERAL SKIN EXAM: no rashes or lesions noted Course Vital Signs: Vital signs: Vital Signs Pulse Rate 62 11/15/23 02:27 Respiratory Rate 13 11/15/23 02:27 Blood Pressure 99/63 11/15/23 02:27 Pulse Oximetry 95 11/15/23 02:27 MDM - Psych Medical Decision Making This is a medically stable appearing intoxicated male. He has nonemergent complaints of feeling agitated and depressed at times. He is not suicidal or homicidal. He has no medical complaints. He wishes to be back on his Zoloft. He is written for this and can get it filled as an outpatient. No radiology studies performed this visit Discharge Plan Discharge Patient Disposition: Home Clinical Impression: Alcohol intoxication Condition: Stable Prescriptions: Continued sertraline 100 mg tablet 100 mg PO QDAY Qty: 30 0RF No Action bupropion HCl 300 mg tablet extended release 24 hr 300 mg PO QAM Qty: 14 0RF Discharge Orders: Discharge ED (Routine); Ordered 11/15/23 Ordered By: Narinder Hernandez Referrals: César Jeff MD [Primary Care Provider] - 1-3 days Patient Instructions: Depression (ED), Alcohol Intoxication (ED), Opioid Safety, Pain Management Activity Restrictions/Additional Instructions: Your Zoloft has been refilled and scripted to your pharmacy. You do not have any beds open in our neuropsychiatric facility for inpatient treatment. Follow- up with your doctor next week. Coding Level of Care Code ED Shredded Filler Machine Wrapper Layer for Anna Marie Pascal
== END 2023-11-15 02:58 | disposition home or self-care (01) ==
PROVIDERS: Emergency Provider Emergency Medicine; PCP Family Medicine
DX: F10.129 Alcohol abuse with intoxication, unspecified (principal); Y90.9 Presence of alcohol in blood, level not specified; F17.290 Nicotine dependence, other tobacco product, uncomplicated
CPT/HCPCS: 99283

== ENCOUNTER 2024-06-30 13:09 | Emergency (ER) | payer SELFPAY ==
[2024-06-30 13:12] VITALS: BP 104/65; RESP 17; TEMP 36.6; O2SAT 99; BMI 23.7
--- NOTE | 2024-06-30 13:38 | W.ED.URI ---
HPI - URI/Sore Throat General: Chief Complaint: Upper Respiratory Infection Stated Complaint: sinus infection Time Seen by Provider: 06/30/24 13:36 Source: patient Mode of arrival: ambulatory Limitations: no limitations History of Present Illness: Patient is a 39-year-old male who presents today due to sinus issues. Patient states that since December he has had sinus pressure, drainage, and a foul smell in his nose. Symptoms are worse first thing in the morning when he blows his nose-reports foul smelling yellow drainage. Patient states that he has not tried nasal decongestants, nasal spray, or nasal washes such as a [place] pot. Denies ear pain or drainage. Denies fever, chills, night sweats, or cough. No headache or fevers. States mainly he is here for a work note. MD elicited complaint: rhinorrhea and nasal congestion Onset (ago): month(s) (6 months- since December ) Consistency: intermittent Severity: moderate Description of mucous: yellow Able to tolerate fluids by mouth: Yes Exacerbating factors: nothing Relieving factors: nothing Associated symptoms: Reports congestion, nasal congestion and rhinorrhea; Deny abdominal pain, chills, chest pain, cough, epistaxis, ear or mastoid pain, fever(s), headache(s), nausea, rash, sore throat or vomiting Treatments prior to arrival: other ( Fishmox months ago) Related Data Previous Rx's ?Medication ?Instructions ?Recorded bupropion HCl 150 mg 24 hr tablet, 150 mg PO QAM #30 tabs 05/02/24 extended release (Wellbutrin XL) bupropion HCl 300 mg 24 hr tablet, 300 mg PO QAM #30 tabs 05/02/24 extended release sertraline 100 mg tablet 150 mg (1.5 x 100 mg) PO QDAY #45 05/02/24 tabs amoxicillin 875 mg-potassium 1 tab PO BID #14 tabs 06/30/24 clavulanate 125 mg tablet fluticasone propionate 50 2 spray intranasal DAILY #16 grams 06/30/24 mcg/actuation nasal spray,suspension (Flonase Allergy Relief) Allergies Allergy/AdvReac Type Severity Reaction Status Date / Time No Known Allergies Allergy Verified 05/02/24 15:31 Review of Systems Const: Denies: fever(s), chills, body aches, change in appetite, fatigue or night sweats Eyes: Denies: change in vision ENMT: Reports: nasal discharge, nasal congestion and post nasal drip; Denies: throat pain, ear or mastoid pain, ear discharge, change in hearing, tinnitus, nasal obstruction or epistaxis Card: Denies: chest pain or palpitations Resp: Denies: dyspnea, productive cough or wheezing GI: Denies: abdominal pain, nausea or vomiting : Denies: flank pain Musc: Denies: neck pain or back pain Skin/Breast: Denies: rash, pruritus or erythema Neuro: Denies: headache(s) All/Imm: Denies: throat swelling, facial swelling or itchy eyes PFSH ED PFSH: Medical History Psychiatric care Recent surgical procedure on lower extremity Surgical History History of appendectomy Social History Smoking and tobacco/nicotine status: current every day tobacco/nicotine user e-cigarettes E-Cigarette Details: vaporizer device and with nicotine E-cig/vape details: 0.6 mg - 2/day Quit status (tobacco/nicotine): has tried quititng Number of times tried to quit tobacco: 2 Second hand smoke exposure: Yes Alcohol intake: current Alcohol intake frequency: few times a month Alcohol type: hard liquor Substance/Drug Use: former Date of last use: 2019 Physical Exam Const: COMMON NORMALS: no acute distress, patient oriented x3, no limitations, alert and well nourished GENERAL APPEARANCE: cooperative ORIENTATION/CONSCIOUSNESS: Yes awake, Yes oriented to person, Yes oriented to place and Yes oriented to time HENMT: COMMON NORMALS: normocephalic and atraumatic HEAD & SCALP: normal to inspection, normocephalic and atraumatic FACE & SINUS: normal facial exam, sinuses nontender and face symmetric; no erythema and no edema NOSE: Abnormal mucous membranes and turbinates present erythematous MOUTH: Normal oral and palatal mucosa present, lip normal, tongue normal and Normal salivary glands and ducts present THROAT: postnasal drainage Eye: GENERAL EYE: appearance normal, both eyes and all related structures Neck/C-Spine: COMMON NORMALS: no lymphadenopathy GENERAL: No anterior neck swelling and No submandibular swelling Resp: COMMON NORMALS: normal respiratory effort and clear to auscultation bilaterally AUSCULTATION: clear to auscultation bilaterally Cardio: COMMON NORMALS: regular rate and regular rhythm RATE: regular rate RHYTHM: regular rhythm Neuro: COMMON NORMALS: patient oriented x3 SENSORIUM/ORIENTATION: Yes alert, Yes oriented to person, Yes oriented to place and Yes oriented to time Course Vital Signs: Vital signs: Vital Signs Temperature 97.9 F 06/30/24 13:12 Respiratory Rate 17 06/30/24 13:12 Blood Pressure 104/65 06/30/24 13:12 Pulse Oximetry 99 06/30/24 13:12 Oxygen Delivery Me thod Room Air 06/30/24 13:12 MDM - URI/Sore Throat Medical Decision Making Patient here for chronic sinus issues. He has never been seen or treated for any of these previously. Will place him on Augmentin and Flonase. Will refer to ENT for further evaluation if these do not improve. Medical Records I reviewed the patient's medical records. No radiology studies performed this visit Discharge Plan Discharge Patient Disposition: Home Clinical Impression: Sinusitis Qualifiers: Sinusitis location: maxillary Chronicity: chronic Qualified Code(s): J32.0 - Chronic maxillary sinusitis Condition: Stable Prescriptions: New amoxicillin-pot clavulanate 875-125 mg tablet 1 tab PO BID Qty: 14 0RF fluticasone propionate [Flonase Allergy Relief] 50 mcg/actuation spray,suspension 2 spray intranasal DAILY Qty: 16 0RF Rx Instructions: administer into each nostril No Action sertraline 100 mg tablet 150 mg PO QDAY Qty: 45 2RF bupropion HCl 300 mg tablet extended release 24 hr 300 mg PO QAM Qty: 30 2RF bupropion HCl [Wellbutrin XL] 150 mg tablet extended release 24 hr 150 mg PO QAM Qty: 30 2RF Discharge Orders: Discharge ED (Routine); Ordered 06/30/24 Ordered By: Kenyetta Ruth Referrals: César Jeff MD [Primary Care Provider] - Activity Restrictions/Additional Instructions: As we discussed, we will refer you to ENT for further evaluation of your sinus issues. We will treat you with antibiotics and an intranasal steroid to see if this helps. 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
== END 2024-06-30 14:13 | disposition home or self-care (01) ==
PROVIDERS: Emergency Provider Physician Assistant; PCP Family Medicine
DX: J32.0 Chronic maxillary sinusitis (principal)
CPT/HCPCS: 99283